=== PATIENT | male | born 1945 | race Caucasian/White ===

== ENCOUNTER 2016-12-16 14:52 | Inpatient (IN) | payer OTHER ==
--- NOTE | ~2016-12-16 | CR72 ---
[facility] A Service of [facility] & [facility] RADIOLOGY TEXT RESULTS PATIENT: MINDY PETERSON LOCATION: [place] [address] : [birth year] UNIT #: [id number] AGE: [address]: Kee Foreman MD SEX: M ORDER DR: [id number] [facility] [address] [facility]. [place], [place] [address] [id number] I MR#: [id number] Acc #: [id number] NAME: MINDY PETERSON : 1945 SEX: M STUDY DATE/TIME: 12/17/2016 4:52 UNIT: CEDOF ROOM: [facility] STUDY DESCRIPTION: CR Chest Single View Portable Attending Physician: Kee Foreman Ordering Physician: Kee Foreman Primary Care Physician: Nickolas Arango M.D. MEDICAL IMAGING REPORT This report is preliminary unless electronic signature is present EXAM Single view chest INDICATIONS Small bowel obstruction. Nausea, dizziness, shortness of air. Cardiomegaly. FINDINGS Single portable AP view of the chest compared to 06/18/2016. The heart is enlarged. There is chronic interstitial opacities in both lungs. No pleural effusion. IMPRESSION No acute findings. Cardiomegaly and chronic interstitial opacities. Dictated by... Sharad Andres M.D. THIS IS AN ELECTRONICALLY VERIFIED REPORT Sharad Andres M.D. at 12/18/2016 12:19 AM Nani TD: 12/17/2016 06:23 JOB #: [id number] MEDICAL IMAGING REPORT Page 1 of 1 COPY
--- NOTE | ~2016-12-16 | CR4 ---
[facility] A Service of [facility] & [facility] RADIOLOGY TEXT RESULTS PATIENT: MINDY PETERSON LOCATION: [facility] 55- : 45 UNIT #: [id number] AGE: [address]: Kee Foreman MD SEX: M ORDER DR: [id number] [facility] [address] [facility]. [place], [place] [address] [id number] I MR#: [id number] Acc #: [id number] NAME: MINDY PETERSON : 1945 SEX: M STUDY DATE/TIME: 12/17/2016 08:07 UNIT: [facility] ROOM: [facility] STUDY DESCRIPTION: CR Abdomen Flat Upright or Dec Attending Physician: Fatoumata Foreman M.D. Ordering Physician: Marcus Dumont III, M.D. Primary Care Physician: Nickolas Arango M.D. MEDICAL IMAGING REPORT This report is preliminary unless electronic signature is present EXAM Abdomen, supine and upright, 12/17/2016, 0807 hours. CLINICAL HISTORY 71-year-old with nausea, vomiting, and abdominal pain since 12/15/16. Follow up small bowel obstruction. COMPARISON CT abdomen 12/16/16. FINDINGS Supine and upright views of the abdomen demonstrate no definite small bowel distension or obstruction. There is gas seen throughout the colon. This represents an improvement from yesterday's CT scan. No free air. IMPRESSION No residual small bowel distension is seen on plain film. There is definite gas seen throughout the colon. Findings are improved from CT abdomen 12/16/16. There is no free air. Dictated by... Gemma Hare M.D. THIS IS AN ELECTRONICALLY VERIFIED REPORT Gemma Hare M.D. at 12/18/2016 9:30 AM PORFIRIO/veronica TD: 12/17/2016 15:34 JOB #: [id number] MEDICAL IMAGING REPORT Page 1 of 1 COPY
--- NOTE | ~2016-12-16 | CT4 ---
[facility] A Service of [facility] & [facility] RADIOLOGY TEXT RESULTS PATIENT: MINDY PETERSON LOCATION: [facility] [id number] : 45 UNIT #: [id number] AGE: [address]: Kee Foreman MD SEX: M ORDER DR: [id number] [facility] [address] [facility]. [place], [place] [address] [id number] I MR#: [id number] Acc #: [id number] NAME: MINDY PETERSON : 1945 SEX: M STUDY DATE/TIME: 12/16/2016 20:07 UNIT: CEDOF ROOM: [id number] STUDY DESCRIPTION: CT Abd and Pelv Wo Cont Attending Physician: Kee Foreman Ordering Physician: Win Zaman M.D. Primary Care Physician: Nickolas Arango M.D. MEDICAL IMAGING REPORT This report is preliminary unless electronic signature is present EXAM CT abdomen and pelvis HISTORY Nausea, abdomen pain, dizziness across middle and bilateral x5 to 6 days. Umbilical hernia repair, bilateral cataracts, colon resection, bladder repair, bilateral lower extremity stents. This CT exam was performed with one or more of the following radiation dose reduction techniques: automatic exposure control, adjustment of mA and/or kV according to patient size, and iterative reconstruction. FINDINGS CT abdomen and pelvis performed without administration of oral or intravascular contrast. Study limited in the absence of both enteric and intravascular contrast. Comparison 12/12/2013. Emphysema at lung bases. Calcified granuloma right lung base. Mild cardiac enlargement. There are coronary arterial calcifications. Calcified granulomata in the liver. No suspicious focal hepatic parenchymal abnormality. Gallbladder, spleen, pancreas, adrenal glands unremarkable. Nonobstructing intrarenal calculi bilaterally. Largest is on the left in the mid kidney measuring 3-4 mm. Some of these calcifications could be renovascular. No hydronephrosis or hydroureter. No indication of ureteral or bladder calculi. No perinephric inflammatory change. CT PELVIS: No inguinal adenopathy. The urinary bladder is unremarkable. There are prostatic calcifications. No pelvic or retroperitoneal adenopathy. Distal esophagus and stomach unremarkable. High-grade mechanical small bowel obstruction secondary to what appears to be an incarcerated loop of [id number] small bowel probably distal jejunum or proximal ileum in a left paracentral paraumbilical hernia. Small bowel loops extending to the hernia measure up to about 5.3 cm in maximum [facility]S. [facility] A Service of [facility] & [facility] RADIOLOGY TEXT RESULTS PATIENT: MINDY PETERSON LOCATION: [facility] : 45 UNIT #: [id number] AGE: [address]: Kee Foreman MD SEX: M ORDER DR: diameter and contain fluid and multiple air-fluid levels. Small bowel exiting the hernia sac is smaller in caliber but the small bowel immediately exiting the hernia sac shows some mural thickening which could be a reflection of edema secondary to vascular compromise. Remainder of the distal small bowel is decompressed. Surgical consultation strongly recommended. The dilated small bowel loop within the hernia sac measures up to about 3.2 cm in diameter and contains debris. There is some inflammatory change in the fat extending toward the hernia sac. Patient appears to be status post appendectomy. There is pancolonic diverticulosis. Air and stool seen throughout normal-caliber colon. There is evidence of prior sigmoid resection and reanastomosis. No abnormal soft tissue at the anastomotic line. No free air or intraabdominal fluid collection. Atherosclerotic arterial calcifications. [place] aortobifemoral bypass graft. [place] iliac vessels are diminutive in caliber and show extensive vascular calcification. Degenerative changes in the spine. No acute-appearing bony abnormality. IMPRESSION 1. Findings discussed with Dr. Zaman at time of this dictation. High-grade mechanical small bowel obstruction with transition zone in the distal jejunum or proximal ileum involving what is probably a short incarcerated loop of small bowel in a left paraumbilical hernia. There is high-grade resulting obstruction with small bowel loops leading to the hernia sac measuring up to about 5.3 cm in diameter. Small bowel proximal to the hernia sac contains multiple air-fluid levels and a large volume of fluid and debris. A dilated loop within the hernia sac measures 3.2 cm in diameter and contains debris. Relatively decompressed loop exiting the hernia sac shows abnormal mural thickening which may be a reflection of edema secondary to vascular compromise. Surgical consultation is recommended. There is no free air in the abdomen. There is no abnormal fluid collection. There is some inflammatory change in the mesenteric fat of the of small bowel loop extending into the left paraumbilical hernia. 2. Postoperative changes of appendectomy and sigmoid resection. There is pancolonic uncomplicated diverticulosis. 3. Gallbladder, pancreas unremarkable. 4. Small nonobstructing bilateral renal calculi. No acute renal findings. 5. Prior aortobifemoral bypass graft. 6. Extensive atherosclerotic arterial calcification. 7. Emphysema at lung bases. Dictated by... Michi Baird M.D. THIS IS AN ELECTRONICALLY VERIFIED REPORT Michi Baird M.D. at 12/17/2016 10:27 PM [facility] A Service of [facility] & [facility] RADIOLOGY TEXT RESULTS PATIENT: MINDY PETERSON LOCATION: [place] [address] : [birth year] UNIT #: [id number] AGE: [address]: Kee Foreman MD SEX: M ORDER DR: LIZZ/carmelita TD: 12/17/2016 01:16 JOB #: [id number] MEDICAL IMAGING REPORT Page 1 of 1 COPY
--- NOTE | ~2016-12-16 | EKG ---
PATIENT: MINDY PETERSON UNIT #: [id number] Ventricular Rate: 65 BPM Atrial Rate: 394 BPM QRS Duration: 92 ms Q-T Interval: 400 ms QTC Calculation(Bezet): 416 ms Calculated R Arlee: 20 degrees Calculated T Arlee: 55 degrees Diagnosis Line: Atrial fibrillation Diagnosis Line: Abnormal ECG Diagnosis Line: When compared with ECG of 04-JUN-2016 14:41, Diagnosis Line: Nonspecific T wave abnormality no longer evident Diagnosis Line: in Inferior leads Diagnosis Line: Nonspecific T wave abnormality now evident in Diagnosis Line: Lateral leads Diagnosis Line: Confirmed by GARRISON MERCADO MD ([id number]) on 12/18/2016 Diagnosis Line: 5:56:28 PM INTERPRETING MD: ROGELIO ISAAC
--- NOTE | ~2016-12-16 | HP ---
Unit #: [id number] #: [id number] Patient: MINDY PETERSON [id number] [address] [place], [place] [address] [id number] I MR#: [id number] NAME: MINDY PETERSON ROOM: 55 Age: 71 Sex: M Admission Date: 12/16/2016 : 1945 Attending Physician: Fatoumata Foreman M.D. Primary Care Physician: Nickolas Arango M.D. HISTORY AND PHYSICAL CHIEF COMPLAINT Abdominal pain, nausea, vomiting. HISTORY OF PRESENT ILLNESS This is a 71-year-old gentleman who has been having a one and a half week history of abdominal pain. The pain is worse in the central portion of his abdomen. He has been experiencing some cramping all over. He has had some worsening vomiting that is green in color. He had a bowel movement just recently and states he feels slightly better this morning. He also had an NG-tube placed with minimal return. PAST MEDICAL HISTORY Significant for coronary artery disease, hypertension, diabetes and hypothyroidism. MEDICATIONS Please see Med Rec list for list of medications. He does take Xarelto. ALLERGIES He has no known drug allergies. PAST SURGICAL HISTORY Significant for numerous abdominal surgeries including colon resection and multiple hernia repairs, his last of which was done in 2010. REVIEW OF SYSTEMS Negative for fevers or weight loss and is otherwise as above. FAMILY HISTORY Negative for any abdominal cancers. PHYSICAL EXAMINATION VITAL SIGNS: Temperature 98.1, heart rate is 82, respiratory rate is 20, blood pressure is 139/90. GENERAL: He is in no acute distress. HEENT: Pupils are equal, reactive to light and accommodation. His extraocular muscles are intact. NECK: Without masses or bruits. LUNGS: Good breath sounds bilaterally with equal air exchange. CARDIAC: Regular rate and rhythm without murmur. ABDOMEN: Soft, nondistended, nontender. He has a reducible periumbilical incisional hernia. EXTREMITIES: Without edema or cyanosis. NEUROLOGICAL: He is alert and oriented. here are no focal deficits. Unit #: [id number] #: [id number] Patient: MINDY PETERSON DIAGNOSTIC STUDIES IMAGING: CT scans a "incarcerated hernia" with a transition zone. LABORATORY: White blood count is 15,000, creatinine is 1.8. IMPRESSION This is a gentleman who has a small bowel obstruction which clinically has resolved and I believe whatever was incarcerated is now reduced. He has had a bowel movement this morning and has had minimal NG-tube output. The other issues - he is on blood thinners with his Xarelto. My plan is to discontinue his NG-tube, keep him NPO, repeat KUB and reassess. He will likely require laparoscopic, possible open, repair of this recurrent incisional hernia during this hospitalization. Dictated by Marcus Dumont III, M.D. VCL/kaylee TD: 12/18/2016 08:15 JOB #: [id number] HISTORY AND PHYSICAL Page 1 of 1 X Marcus Dumont III, MD HISTORY AND PHYSICAL
--- NOTE | ~2016-12-16 | CR63 ---
[facility] A Service of [facility] RADIOLOGY TEXT RESULTS PATIENT: MINDY PETERSON LOCATION: [place] [address] : [birth year] UNIT #: [id number] AGE: [address]: Kee Foreman MD SEX: M ORDER DR: [id number] [facility] [address] [facility]. [place], [place] [address] [id number] I MR#: [id number] Acc #: [id number] NAME: MINDY PETERSON : 1945 SEX: M STUDY DATE/TIME: 12/22/2016 7:40 UNIT: [facility] ROOM: [facility] STUDY DESCRIPTION: CR Chest 2 View Attending Physician: Kee Foreman Ordering Physician: Fatoumata Foreman M.D. Primary Care Physician: Nickolas Arango M.D. MEDICAL IMAGING REPORT This report is preliminary unless electronic signature is present EXAM PA and lateral chest INDICATIONS Follow pneumonia. COMPARISON 12/20/2016 FINDINGS Heart size stable. Stable infiltrate left base. Stable pulmonary vascular prominence. Visualized osseous structures are unremarkable. IMPRESSION No significant change in the appearance of the chest Dictated by... Jadiel Jo M.D. THIS IS AN ELECTRONICALLY VERIFIED REPORT Jadiel Jo M.D. at 12/24/2016 7:47 AM CRISTI/padmini TD: 12/22/2016 13:49 JOB #: [id number] MEDICAL IMAGING REPORT Page 1 of 1 COPY
--- NOTE | ~2016-12-16 | CR72 ---
[facility] A Service of [facility] & [facility] RADIOLOGY TEXT RESULTS PATIENT: MINDY PETERSON LOCATION: [place] [address] : [birth year] UNIT #: [id number] AGE: [address]: Kee Foreman MD SEX: M ORDER DR: [id number] [facility] [address] [facility]. [place], [place] [address] [id number] I MR#: [id number] Acc #: [id number] NAME: MINDY PETERSON : 1945 SEX: M STUDY DATE/TIME: 12/24/2016 5:03 UNIT: [facility] ROOM: [facility] STUDY DESCRIPTION: CR Chest Single View Portable Attending Physician: Fatoumata Foreman M.D. Ordering Physician: Fatoumata Foreman M.D. Primary Care Physician: Nickolas Arango M.D. MEDICAL IMAGING REPORT This report is preliminary unless electronic signature is present EXAM Portable chest INDICATION Shortness of air today. PROCEDURE Frontal view chest. COMPARISON 12/22/2016. FINDINGS Stable cardiomegaly and bibasilar opacity. No new dense consolidation or pneumothorax. IMPRESSION Stable. Dictated by... Raz Brothers M.D. THIS IS AN ELECTRONICALLY VERIFIED REPORT Raz Brothers M.D. at 12/24/2016 10:13 PM DIANNA/zulema TD: 12/24/2016 10:17 JOB #: [id number] MEDICAL IMAGING REPORT Page 1 of 1 COPY
--- NOTE | ~2016-12-16 | CR72 ---
[facility] A Service of [facility] & [facility] RADIOLOGY TEXT RESULTS PATIENT: MINDY PETERSON LOCATION: [place] [address]- : [birth year] UNIT #: [id number] AGE: [address]: Kee Foreman MD SEX: M ORDER DR: [id number] [facility] [address] [place], [place] [address] [id number] I MR#: [id number] Acc #: [id number] NAME: MINDY PETERSON : 1945 SEX: M STUDY DATE/TIME: 12/20/2016 6:10 UNIT: [facility] ROOM: [facility] STUDY DESCRIPTION: CR Chest Single View Portable Attending Physician: Fatoumata Foreman M.D. Ordering Physician: Fatoumata Foreman M.D. Primary Care Physician: Nickolas Arango M.D. MEDICAL IMAGING REPORT This report is preliminary unless electronic signature is present EXAM Portable AP view of the chest COMPARISON December 17, 2016; June 18, 2016; June 13, 2016. INDICATION 71-year-old male with dyspnea, nausea and emesis for 5 days. History of COPD. FINDINGS/IMPRESSION Exam is limited by rightward patient rotation. Lung volumes are diminished from comparison study with increasing bibasilar opacities, left greater than right, increasing interstitial opacities throughout the lungs, possibly reflecting bronchovascular crowding. There is cardiomegaly. Lung opacities could representing any combination of atelectasis, pneumonia and/or pulmonary edema. There is no evidence of pneumothorax or significant pleural effusion. Calcified granulomas are suspected in the mediastinum. Dictated by... Ttii Garcia M.D. THIS IS AN ELECTRONICALLY VERIFIED REPORT Titi Garcia M.D. at 12/27/2016 1:50 PM Kari TD: 12/20/2016 10:40 JOB #: [id number] MEDICAL IMAGING REPORT Page 1 of 1 COPY
--- NOTE | ~2016-12-16 | CR2 ---
[facility] A Service of [facility] RADIOLOGY TEXT RESULTS PATIENT: MINDY PETERSON LOCATION: [place] [address] : [birth year] UNIT #: [id number] AGE: [address]: Kee Foreman MD SEX: M ORDER DR: [id number] [facility] [address] [facility]. [place], [place] [address] [id number] I MR#: [id number] Acc #: [id number] NAME: MINDY PETERSON : 1945 SEX: M STUDY DATE/TIME: 12/18/2016 07:49 UNIT: [facility] ROOM: [facility] STUDY DESCRIPTION: CR Abdomen Acute Series Attending Physician: Fatoumata Foreman M.D. Ordering Physician: Fatoumata Foreman M.D. Primary Care Physician: Nickolas Arango M.D. MEDICAL IMAGING REPORT This report is preliminary unless electronic signature is present EXAM Abdomen series with chest 12/18/2016 0749 hours CLINICAL HISTORY 71-year-old man with abdominal pain, small bowel obstruction, nausea, vomiting and diarrhea and shortness of air since 12/15/2016. COMPARISON 12/17/2016 at 0807 hours. FINDINGS Upright chest film demonstrates normal heart size. The lungs are clear of acute densities. There is no pleural effusion or pneumothorax. There is no free air in the abdomen. Supine and upright views of the abdomen demonstrate no evidence of bowel distension or obstruction. No suspicious calcifications. IMPRESSION 1. No acute findings in the chest. 2. No evidence of residual bowel distension or obstruction. No suspicious calcifications. No free air. Dictated by... Gemma Hare M.D. THIS IS AN ELECTRONICALLY VERIFIED REPORT Gemma Hare M.D. at 12/18/2016 2:35 PM PORFIRIO/zulema TD: 12/18/2016 10:24 JOB #: [id number] [facility] A Service [facility] RADIOLOGY TEXT RESULTS PATIENT: MINDY PETERSON LOCATION: [facility] [phone] : [birth year] UNIT #: [id number] AGE: [address]: Kee Foreman MD SEX: M ORDER DR: MEDICAL IMAGING REPORT Page 1 of 1 COPY
--- NOTE | ~2016-12-16 | CO ---
Unit #: [id number] #: [id number] Patient: MINDY PETERSON [id number] [place] [address] [facility]. [place], [place] [address] [id number] MR#: [id number] NAME: MINDY PTEERSON ROOM: [facility] Age: 71 Sex: M Admission Date: 12/16/2016 : 1945 Attending Physician: Fatoumata Foreman M.D. Primary Care Physician: Nickolas Arango M.D. CONSULTATION REPORT HISTORY OF PRESENT ILLNESS This is a gentleman with a history of COPD and recurrent kidney infections who we have seen multiple times in the hospital. Last night he presented with generalized weakness, worsening shortness of breath, and pain around the abdominal hernia site. The severity was worsening gradually. Patient also had some nausea without significant vomiting. Had (1) had a bowel movement, but the pain was getting worse, and it was beginning to be associated with lightheadedness. Therefore, patient came to the emergency room. A CT scan of the abdomen found an incarcerated ventral hernia. However, as the patient is on Xarelto daily, it is being held for 24-48 hours before any surgery is performed on the patient. We are going to get a KUB in the morning and then clear patient for surgery tomorrow. PAST MEDICAL HISTORY 1. Cardiac catheterization in 2007 which showed kind of scattered coronary artery disease. 2. A 2D echocardiogram showed an ejection fraction of 55% to 60% and trace tricuspid regurgitation. 3. Ascending aortic dilatation that is 4.2 cm per CAT scan in October 2005. 4. Hypertension. 5. Hyperlipidemia. 6. Atrial fibrillation. 7. History of direct cardioversion. 8. Diabetes mellitus type 2. 9. Peripheral vascular disease. 10. Chronic obstructive pulmonary disease. 11. History of dementia. 12. History of alcohol abuse. 13. History of being a former smoker. 14. Hypothyroidism. PAST SURGICAL HISTORY 1. Colovesicular fistula surgical repair. 2. Appendectomy. 3. Cataract extraction. 4. Carpal tunnel release. 5. Left arthroscopic surgery. SOCIAL HISTORY Patient is retired and . He quit in July. Patient was one to one and a half packs per day for more than 60 years. Patient has a history of (2) alcohol consumption, none currently. No history of polysubstance use and no occupational exposure. Unit #: [id number] #: [id number] Patient: MINDY PETERSON FAMILY HISTORY Heart disease and cancer. ALLERGIES No known medical allergies. HOME MEDICATIONS 1. Symbicort 80/4.5 at 2 puffs twice daily. 2. Xarelto 20 mg daily. 3. Pravastatin 40 mg daily. 4. ProAir 90 mcg every 4 hours. 5. Memantine/donepezil 28 mg/10 mg capsule 1 daily. 6. Synthroid 0.125 mg q.24 hours. 7. Glucotrol 5 mg daily. 8. Aspirin 81 mg daily. 9. Diltiazem 360 mg daily. 10. Allergy 10 mg daily. 11. Celexa 20 mg daily. 12. Metformin 500 mg at bedtime. 13. Nicotine 21 mg 1 patch topical daily. PHYSICAL EXAMINATION VITAL SIGNS: T-current 97.7, pulse 68, respiratory rate 18, blood pressure 129/73, and saturating 100% on 2 liters nasal cannula. Ins and outs not recorded. DIAGNOSTIC STUDIES LABORATORY: White count 11.8, hemoglobin 11.2, and platelets of 246,000. RDW is elevated at 18.4. Comprehensive metabolic profile: BUN and creatinine 25 and 1.2 and glucose 176. LFTs are within normal limits. Lactic acid is 1.1. Urinalysis shows elevated WBCs. Amylase and lipase are 15 and 20 so within normal limits. ASSESSMENT AND PLAN Incarcerated ventral hernia. We are going to do bowel rest. We are going to do nasogastric suction. Surgery is going to follow, and we are going to keep him on IV fluid supplemental while we are waiting for bowel function to return. Dictated by... Nicholas Obrien TD: 12/17/2016 18:46 JOB #: [id number] CONSULTATION REPORT Page 1 of 1 X Kee Foreman MD CONSULTATION REPORT
--- NOTE | ~2016-12-16 | DS ---
Unit #: [id number] #: [id number] Patient: MINDY PETERSON [id number] [address] [place], [place] [address] [id number] I MR#: [id number] NAME: MINDY PETERSON ROOM: [facility] Age: 71 Sex: M Admission Date: 12/16/2016 : 1945 Discharge Date: 12/25/2016 Attending Physician: Fatoumata Foreman M.D. Primary Care Physician: Nickolas Arango M.D. DISCHARGE SUMMARY REASON FOR ADMISSION 1. Ileus, status post abdominal surgery. 2. Altered mental status. 3. Cellulitis. 4. Probable pneumonia. 5. Urinary retention. CONSULTANTS Dr. Dumont for general surgery. Dr. Nunez for urinary tract infection. PROCEDURES PERFORMED Recurrent incarcerated incisional hernia, status post herniorrhaphy with mesh repair. HOSPITAL COURSE The patient is a pleasant gentleman with a history of chronic obstructive pulmonary disease, recurrent kidney infections, seen multiple times in the hospital. He has generalized weakness, worsening shortness of breath, pain around abdominal hernia site. The patient is having worsening severity nausea without significant vomiting. He had a bowel movement. Pain was getting worse. The pain was beginning to be associated with lightheadedness. The patient came to the emergency room. CT scan of the abdomen found severe incarcerated hernia. However, the patient was on Xarelto so he was put on bowel rest for approximately 24-48 hours before surgery was performed on the patient. The patient was then cleared for surgery by Dr. Arango. The patient had surgery. The patient tolerated it well. There were no acute complications. The patient is being followed by surgery. Urology removed the Whitehead catheter. The patient was able to void. Due to the patient's improvement, he was able to be sent home on Keflex for 7 days. The patient was slightly confused at some points. The was present. The patient also benefitted from a sitter. DISCHARGE MEDICATIONS 1. Albuterol sulfate. 2. RespiClick 1 puff p.r.n. wheezing. 3. Symbicort 2 puffs b.i.d. 80/4.5. 4. Combivent nebs p.r.n. 5. Tamsulosin 0.4 mg daily. 6. Xarelto 10 mg daily. 7. Celexa 20 mg daily. 8. Metformin 500 mg p.o. at bedtime. 9. Zyrtec 10 mg daily. 10. Nicotine patch topical daily. Unit #: [id number] #: [id number] Patient: MINDY PETERSON 11. Diltiazem 360 mg extended release p.o. daily. 12. Memantine/donepezil capsule 10/28 mg daily. 13. Pravastatin 40 mg daily. 14. Aspirin 81 mg daily. 15. Hydrocodone/acetaminophen 7.5/325 mg 1-2 tablets q.4 h. p.r.n. moderate pain. 16. Glipizide 5 mg daily. 17. Levothyroxine 0.125 mg p.o. daily. 18. Keflex 500 mg p.o. t.i.d. times 7 days. FOLLOWUP 1. The patient is to follow up with Dr. Dumont in 10 days. 2. Follow up with our office in approximately two weeks. DIET Advance slowly as tolerated. ACTIVITY Ad rishabh. Dictated by... Nicholas Obrien/joaquin TD: 12/26/2016 09:35 JOB #: [id number] DISCHARGE SUMMARY Page 1 of 1 X Kee Froeman MD X DISCHARGE SUMMARY
--- NOTE | ~2016-12-16 | OR ---
Unit #: [id number] #: [id number] Patient: MINDY PETERSON [id number] [place], [place] [address] [id number] MR#: [id number] NAME: MINDY PETERSON ROOM: [facility] Date of Procedure: 12/19/2016 Admission Date: 12/16/2016 Surgeon: Marcus Dumont III, M.D. : 1945 Attending Physician: Fatoumata Foreman M.D. Primary Care Physician: Nickolas Arango M.D. OPERATIVE REPORT REVISED REPORT PREOPERATIVE DIAGNOSIS Recurrent incarcerated incisional hernia. POSTOPERATIVE DIAGNOSIS Recurrent incarcerated incisional hernia. PROCEDURES PERFORMED Laparoscopic repair of recurrent incarcerated incisional hernia with 8 x 10 inch Ventralight mesh and laparoscopic lysis of adhesions greater than 45 minutes. ANESTHESIA General endotracheal tube anesthesia. SPECIMENS None. COMPLICATIONS None apparent. ESTIMATED BLOOD LOSS Minimal. INDICATIONS FOR PROCEDURE This is a 71-year-old gentleman, who has had multiple abdominal surgeries and ventral hernia repairs in the past. He presented with a bowel obstruction and incarcerated incisional hernia. I was able to partially reduce it to where his bowel obstruction resolved. He is here today for laparoscopic repair. DESCRIPTION OF PROCEDURE After consent was obtained, the patient was brought to the operating room and placed in the supine position. General anesthetic was administered and his abdomen was prepped and draped in standard surgical fashion. I made a 5-mm incision in the right upper quadrant, and using Optiview to enter into the peritoneal cavity. Likely, I was able to get in without any difficulty. Unfortunately, he had a wall of adhesions along the midline. I placed a 5-mm port in the left lower quadrant. I took a little bit of care to place, because of some adhesions; however, it was placed in an area without adhesions. I then took a while to clear off some of the adhesions along the midline. After a very tedious dissection Unit #: [id number] #: [id number] Patient: MINDY PETERSON that included both blunt and very meticulous sharp dissection with Endo Rosina. I was able to identify the midline including approximately 4-5 incarcerated incisional hernias above where his prior mesh repairs were performed. He had two areas specifically that had loops of bowel going up within the hernia sac. I was able to clear out enough area to where I could see the other side of the abdomen and I placed an 11 mm port in the left upper quadrant and a 5-mm port in the left lower quadrant. I kept one from [id number] working to complete the dissection to free up the abdominal wall of all the adhesions, and cleaned out the hernias. Again, after about 45 minutes, I was able to perform meticulous dissection to where these hernias were fully reduced without any injury to the small intestine. Once the defects were identified, I estimated that an 8 x 10 inch piece of Ventralight mesh would widely cover these defects with approximately 2 inch margin. I placed 4 corner sutures along the mesh. It was moistened and rolled up and passed within the 11 mm port site. It was then unfurled and I used an Endo passer to collect the 4 tails of the mesh and I oriented the mesh, so that the rough side was towards the fascia and the smooth side was towards the viscera. I used a capture Tacker to fixate the mesh against the other piece of mesh that was present already and I used SorbaFix Tacker for the muscogee tissue. I had a little bit of excess mesh along the inferior margin that I trimmed approximately 2/3 of an inch. This was removed through one of the port sites. I had excellent hemostasis and all needle, sponge, and instrument counts were correct x2. Again, there was both an outer and inner row of tacks placed to fixate the mesh. I removed all the trocars and released the pneumoperitoneum. All the incisions were injected with 0.25% plain Marcaine. I reapproximated the skin edges with interrupted 4-0 Vicryl subcuticular suture. Steri-Strips were then applied. The patient tolerated the procedure without any problems and returned to the recovery room in stable condition. Dictated by... Marcus Dumont III, M.D. VCL/isidoro TD: 12/20/2016 17:06 JOB #: [id number] OPERATIVE REPORT Page 1 of 1 X Marcus Dumont III X PROCEDURE OPERATIVE NOTE
--- NOTE | ~2016-12-16 | CO ---
Unit #: [id number] #: [id number] Patient: MINDY PETERSON [id number] [address] [place], [place] [address] [id number] I MR#: [id number] NAME: MINDY PETERSON ROOM: [facility] Age: 71 Sex: M Admission Date: 12/16/2016 : 1945 Attending Physician: Fatoumata Foreman M.D. Primary Care Physician: Nickolas Arango M.D. Requesting Physician: Nickolas Arango M.D. CONSULTATION REPORT CHIEF COMPLAINT Urinary retention, gross hematuria. HISTORY OF PRESENT ILLNESS The patient is a 71-year-old male who presented with abdominal pain. He was found to have a recurrent ventral hernia. The patient is a poor historian, but he had some element of urinary retention, which he stated had lasted for "not too long." He had a catheter, which apparently was traumatically removed, and had some hematuria after that. A Whitehead catheter was replaced. His urine is now clear. He has had some urinary issues in the past, and many years ago he was on Flomax but has not recently been on Flomax. He has had occasional frequency and urgency. PAST MEDICAL HISTORY 1. COPD. 2. Pulmonary embolus. 3. Nephrolithiasis. 4. Diabetes. 5. Hyperlipidemia. 6. Hypertension. PAST SURGICAL HISTORY 1. Colovesical fistula repair. 2. Multiple abdominal surgeries and bowel resections. 3. Umbilical hernia repair. 4. Cataract repair. 5. Carpal tunnel repair. 6. Cardiac catheterization. SOCIAL HISTORY Previous smoker. Positive for alcohol. No drug use. FAMILY HISTORY Positive for diabetes, hypertension and lung cancer. REVIEW OF SYSTEMS A 12-point review of systems was performed and was positive for urinary retention, for hematuria after Whitehead being removed and for abdominal pain, as well as hemoptysis. The review of systems was otherwise negative. PHYSICAL EXAMINATION VITALS: Temperature 98.4, blood pressure 160/78, pulse 96. HEENT: Normocephalic, atraumatic. Extraocular movements are intact. NECK: His neck is supple. No lymphadenopathy. Unit #: [id number] #: [id number] Patient: MINDY PETERSON LUNGS: The patient has symmetric chest rise. He is breathing comfortably. CARDIOVASCULAR: Regular rate and rhythm. ABDOMEN: Soft, nontender, nondistended. There are multiple healed surgical incisions. EXAM: Whitehead catheter is in place. The urine is clear. There is blood at the meatus, around the catheter. Digital rectal exam - His prostate is 1+ enlarged. There are no nodules. EXTREMITIES: No clubbing, cyanosis or edema. Radial pulses are 2+ bilaterally. NEUROLOGIC: He is alert and oriented x4. He is moving all extremities well. DIAGNOSTIC STUDIES IMAGING: CT scan of the abdomen and pelvis without contrast was reviewed, which reveals no hydronephrosis and small bilateral nonobstructing stones, as well as a ventral hernia. LABS: Significant for a creatinine of 1.1. Urinalysis prior to the catheter being pulled out was nitrite negative, leukocyte esterase negative, negative for blood. ASSESSMENT AND PLAN Gross hematuria after traumatic Whitehead removal with urinary retention. We will leave his catheter in place, as he is going to surgery for ventral hernia repair today. We will start him on Flomax. We will plan to do a voiding trial prior to discharge. We appreciate the opportunity to participate in the care of this patient. Dictated by... Win Nunez M.D. MAGI/joceline TD: 12/19/2016 09:14 JOB #: [id number] CONSULTATION REPORT Page 1 of 1 X Win Nunez MD CONSULTATION REPORT
[~2016-12-16 14:52] MED LIST: ACETAMINOPHEN PO; ALBUTEROL17 GM INH; ALL DAY ALLERGY10 MG PO; AMIODARONE PO; AMPICILLIN PO; ASPIRIN81 M1 PO; ASPIRIN81 M2 PO; ASPIRINEC PO; BLOOD PRESSURE; CARDIZEM CD PO; COMBIVENT INH14.7 GM INH; COUMADIN PO; DILTIAZEM ER360 MG PO; GLUCOTROL PO; GLUCOVANCE 2.5/1 TA1 PO; GLYNASE PO; KEFLEX PO; LEVAQUIN PO; LISINOPRIL PO; MACROBID 100 M100 MG PO; NICOTINE PATCH1 EACH TD; OMNICEF300 M1 PO; PRAVACHOL PO; PRAVASTATIN SOD40 MG PO; PREDNISONE PO; PROAIR RESPICL90 MCG INH; SPIRIVA18 MCG PO; SYMBICORT INH; SYMBICORT80 INH; SYNTHROID PO; SYNTHROID125 PO; TYLOX1 CAP 5/50 PO; XARELTO20 MG PO; ZOCOR PO; ZYRTEC10 M2 PO; [UNRECOGNIZED DRUG - OTHER]; [UNRECOGNIZED DRUG - OTHER]
[2016-12-16 18:44] LABS: BASOPHIL# 0.1 X10e3 (0-0.3); BASOPHIL% 0.6 % (0-2.5); EOSINOPHIL% 0.2 % (0.0-7.0); HEMATOCRIT 41.4 % (38.0-50.0); HEMOGLOBIN 12.5 gm/dL (13.0-16.0); LYMPHOCYTE# 1.7 X10e3 (1.0-3.5); LYMPHOCYTE% 10.9 % (17.0-45.0); MEAN CELL VOLUME 68.4 FL (83-96); MEAN CORPUSCULAR HEMOGLOBIN 20.6 PG (28-34); MEAN CORPUSCULAR HGB CONC 30.2 g/dL (30-36); MEAN PLATELET VOLUME 8.4 FL (6.5-11.5); MONOCYTE% 12.5 % (3.0-12.0); NEUTROPHIL# 11.9 X10e3 (1.5-7.1); NEUTROPHIL% 75.8 % (40-75); PLATELET COUNT 276 X10e3 (140-420); RED BLOOD COUNT 6.05 X10e (3.90-5.60); RED CELL DISTRIBUTION WIDTH 18.3 % (11.0-15.5); WHITE BLOOD COUNT 15.7 X10e3 (4.0-10.5)
[2016-12-16 18:45] LABS: DIFF IND YES
[2016-12-16 19:11] LABS: ALBUMIN SERUM 4.3 g/dL (3.5-5.0); BILIRUBIN, DIRECT 0.2 mg/dL (0.0-0.2); BILIRUBIN,INDIRECT 1.4 mg/dL (0.0-0.9); BILIRUBIN,TOTAL 1.6 mg/dL (0.2-2.0); BUN/CREATININE RATIO 18.88; CALCIUM SERUM 9.4 mg/dL (8.4-10.2); CREATININE SERUM 1.8 mg/dL (0.6-1.4); POTASSIUM 4.7 mmol/L (3.5-5.1)
[2016-12-16 19:28] LABS: ALCOHOL BLOOD <5 mg/dL ([, 0]); CK TOTAL 119 IU/L (36-174)
[2016-12-16 19:33] LABS: ANISOCYTOSIS MOD; MICROCYTOSIS SL; POIKILOCYTOSIS SL
[2016-12-16 19:46] LABS: %MB 4.3 % (0.0-4.0); MB 5.1 ng/ml
[2016-12-16 19:59] LABS: PLATELET ESTIMATE NORMAL (NORMAL)
[2016-12-16 20:38] LABS: URINE SOURCE CLEAN CATCH
[2016-12-16 20:45] LABS: URINE APPEARANCE CLOUDY; URINE BLOOD NEG (NEG); URINE COLOR DK YELLOW; URINE GLUCOSE 100 MG/DL (NEG); URINE KETONE TRACE (NEG); URINE LEUKOCYTE ESTERASE NEG (NEG); URINE NITRATE NEG (NEG); URINE SPECIFIC GRAVITY 1.026 (1.003-1.035)
[2016-12-16 20:48] LABS: URINE BACTERIA AUWI NEG (NEGATIVE); URINE PROTEIN 1+ (NEG); URINE SQUAMOUS EPITHELIAL CELL OCC /[HPF]
[2016-12-16 20:49] LABS: URINE BILIRUBIN NEG (NEG)
[2016-12-16 20:50] LABS: CULTURE INDICATED? NO
[2016-12-16] MEDS ORDERED: CELEXA20 MG PO (22:03)
[2016-12-16] MEDS ORDERED: NAMZARIC 28 MG1 EACH PO (22:03)
[2016-12-16] MEDS ORDERED: METFORMIN HCL500 M3 PO (22:04)
[2016-12-16] MEDS ORDERED: NICOTINE TRANSD14 MG TOP (22:07)
[2016-12-16 22:51] LABS: INR 1.3; PROTHROMBIN TIME (PATIENT) 13.5 SECONDS (9.6-11.5)
[2016-12-16 22:57] LABS: MAGNESIUM 1.9 mg/dL (1.6-3.0); PHOSPHOROUS 4.7 mg/dL (2.5-4.6)
[2016-12-17 10:28] LABS: BASOPHIL# 0.1 X10e3 (0-0.3); BASOPHIL% 0.8 % (0-2.5); EOSINOPHIL# 0.1 X10e3 (0-0.7); EOSINOPHIL% 0.5 % (0.0-7.0); LYMPHOCYTE# 1.8 X10e3 (1.0-3.5); LYMPHOCYTE% 15.1 % (17.0-45.0); MEAN CELL VOLUME 68.5 FL (83-96); MEAN CORPUSCULAR HEMOGLOBIN 20.5 PG (28-34); MEAN CORPUSCULAR HGB CONC 29.9 g/dL (30-36); MEAN PLATELET VOLUME 8.8 FL (6.5-11.5); MONOCYTE# 1.2 X10e3 (0-1.0); MONOCYTE% 10.4 % (3.0-12.0); NEUTROPHIL# 8.7 X10e3 (1.5-7.1); NEUTROPHIL% 73.2 % (40-75); PLATELET COUNT 246 X10e3 (140-420); RED BLOOD COUNT 5.48 X10e (3.90-5.60); RED CELL DISTRIBUTION WIDTH 18.4 % (11.0-15.5); WHITE BLOOD COUNT 11.8 X10e3 (4.0-10.5)
[2016-12-17 10:31] LABS: DIFF IND NO; HEMATOCRIT 37.5 % (38.0-50.0); HEMOGLOBIN 11.2 gm/dL (13.0-16.0)
[2016-12-17 10:54] LABS: ALBUMIN SERUM 3.5 g/dL (3.5-5.0); BUN/CREATININE RATIO 20.83; CALCIUM SERUM 8.6 mg/dL (8.4-10.2); CREATININE SERUM 1.2 mg/dL (0.6-1.4); GLOM FILT RATE Estimated 60.5 mL/min (>60); POTASSIUM 4.2 mmol/L (3.5-5.1); PROTEIN TOTAL SERUM 6.2 g/dL (6.0-8.3)
[2016-12-18 06:58] LABS: HEMATOCRIT 37.7 % (38.0-50.0); HEMOGLOBIN 11.4 gm/dL (13.0-16.0); MEAN CELL VOLUME 69.1 FL (83-96); MEAN CORPUSCULAR HEMOGLOBIN 20.8 PG (28-34); MEAN CORPUSCULAR HGB CONC 30.1 g/dL (30-36); MEAN PLATELET VOLUME 8.7 FL (6.5-11.5); RED BLOOD COUNT 5.45 X10e (3.90-5.60); RED CELL DISTRIBUTION WIDTH 18.8 % (11.0-15.5); WHITE BLOOD COUNT 11.4 X10e3 (4.0-10.5)
[2016-12-18 08:42] LABS: ALBUMIN SERUM 3.6 g/dL (3.5-5.0); BILIRUBIN,TOTAL 0.5 mg/dL (0.2-2.0); BUN/CREATININE RATIO 13.63; CREATININE SERUM 1.1 mg/dL (0.6-1.4); GLOM FILT RATE Estimated 67.2 mL/min (>60); MAGNESIUM 1.8 mg/dL (1.6-3.0); PHOSPHOROUS 2.9 mg/dL (2.5-4.6); POTASSIUM 4.4 mmol/L (3.5-5.1); PROTEIN TOTAL SERUM 6.5 g/dL (6.0-8.3)
[2016-12-19 07:41] LABS: BASOPHIL# 0.1 X10e3 (0-0.3); BASOPHIL% 0.6 % (0-2.5); EOSINOPHIL# 0.1 X10e3 (0-0.7); EOSINOPHIL% 0.7 % (0.0-7.0); HEMATOCRIT 37.6 % (38.0-50.0); HEMOGLOBIN 11.3 gm/dL (13.0-16.0); LYMPHOCYTE# 1.8 X10e3 (1.0-3.5); LYMPHOCYTE% 15.7 % (17.0-45.0); MEAN CELL VOLUME 68.8 FL (83-96); MEAN CORPUSCULAR HEMOGLOBIN 20.7 PG (28-34); MEAN PLATELET VOLUME 8.5 FL (6.5-11.5); MONOCYTE# 1.2 X10e3 (0-1.0); MONOCYTE% 10.2 % (3.0-12.0); NEUTROPHIL# 8.3 X10e3 (1.5-7.1); NEUTROPHIL% 72.8 % (40-75); PLATELET COUNT 234 X10e3 (140-420); RED BLOOD COUNT 5.47 X10e (3.90-5.60); RED CELL DISTRIBUTION WIDTH 18.5 % (11.0-15.5); WHITE BLOOD COUNT 11.4 X10e3 (4.0-10.5)
[2016-12-19 07:44] LABS: DIFF IND NO
[2016-12-19 08:00] LABS: BUN/CREATININE RATIO 8.75; CALCIUM SERUM 8.9 mg/dL (8.4-10.2); CREATININE SERUM 0.8 mg/dL (0.6-1.4); GLOM FILT RATE Estimated 89.9 mL/min (>60); POTASSIUM 3.8 mmol/L (3.5-5.1)
[2016-12-20 06:36] LABS: BASOPHIL# 0.1 X10e3 (0-0.3); BASOPHIL% 0.6 % (0-2.5); HEMATOCRIT 36.5 % (38.0-50.0); HEMOGLOBIN 10.5 gm/dL (13.0-16.0); LYMPHOCYTE# 1.2 X10e3 (1.0-3.5); LYMPHOCYTE% 4.6 % (17.0-45.0); MEAN CORPUSCULAR HEMOGLOBIN 20.2 PG (28-34); MEAN CORPUSCULAR HGB CONC 28.9 g/dL (30-36); MEAN PLATELET VOLUME 8.2 FL (6.5-11.5); MONOCYTE# 2.2 X10e3 (0-1.0); MONOCYTE% 8.2 % (3.0-12.0); NEUTROPHIL# 22.9 X10e3 (1.5-7.1); NEUTROPHIL% 86.6 % (40-75); PLATELET COUNT 215 X10e3 (140-420); RED BLOOD COUNT 5.21 X10e (3.90-5.60); RED CELL DISTRIBUTION WIDTH 18.3 % (11.0-15.5)
[2016-12-20 06:37] LABS: DIFF IND YES; WHITE BLOOD COUNT 26.5 X10e3 (4.0-10.5)
[2016-12-20 07:00] LABS: BUN/CREATININE RATIO 8.88; CALCIUM SERUM 8.3 mg/dL (8.4-10.2); CREATININE SERUM 0.9 mg/dL (0.6-1.4); GLOM FILT RATE Estimated 85.6 mL/min (>60); POTASSIUM 4.3 mmol/L (3.5-5.1)
[2016-12-20 07:15] LABS: ELLIPTOCYTES PRESENT; HOWELL-JOLLY BODIES PRESENT
[2016-12-20 07:16] LABS: OVALOCYTES PRESENT
[2016-12-20 07:17] LABS: PLATELET ESTIMATE NORMAL (NORMAL)
[2016-12-21 05:30] LABS: HEMOGLOBIN 10.1 gm/dL (13.0-16.0); MEAN CELL VOLUME 69.2 FL (83-96); MEAN CORPUSCULAR HEMOGLOBIN 20.5 PG (28-34); MEAN CORPUSCULAR HGB CONC 29.6 g/dL (30-36); MEAN PLATELET VOLUME 8.9 FL (6.5-11.5); RED BLOOD COUNT 4.91 X10e (3.90-5.60); RED CELL DISTRIBUTION WIDTH 18.3 % (11.0-15.5); WHITE BLOOD COUNT 20.9 X10e3 (4.0-10.5)
[2016-12-21 06:44] LABS: BUN/CREATININE RATIO 11.42; CALCIUM SERUM 8.5 mg/dL (8.4-10.2); CREATININE SERUM 0.7 mg/dL (0.6-1.4); POTASSIUM 3.8 mmol/L (3.5-5.1)
[2016-12-22 06:05] LABS: HEMATOCRIT 30.5 % (38.0-50.0); HEMOGLOBIN 9.3 gm/dL (13.0-16.0); MEAN CELL VOLUME 68.2 FL (83-96); MEAN CORPUSCULAR HEMOGLOBIN 20.9 PG (28-34); MEAN CORPUSCULAR HGB CONC 30.6 g/dL (30-36); MEAN PLATELET VOLUME 8.3 FL (6.5-11.5); RED BLOOD COUNT 4.48 X10e (3.90-5.60); RED CELL DISTRIBUTION WIDTH 18.2 % (11.0-15.5); WHITE BLOOD COUNT 12.6 X10e3 (4.0-10.5)
[2016-12-22 06:48] LABS: BUN/CREATININE RATIO 8.75; CALCIUM SERUM 8.5 mg/dL (8.4-10.2); CREATININE SERUM 0.8 mg/dL (0.6-1.4); GLOM FILT RATE Estimated 89.9 mL/min (>60); POTASSIUM 3.8 mmol/L (3.5-5.1)
[2016-12-23 06:50] LABS: HEMATOCRIT 31.8 % (38.0-50.0); HEMOGLOBIN 9.8 gm/dL (13.0-16.0); MEAN CELL VOLUME 68.3 FL (83-96); MEAN CORPUSCULAR HEMOGLOBIN 21.1 PG (28-34); MEAN CORPUSCULAR HGB CONC 30.9 g/dL (30-36); MEAN PLATELET VOLUME 8.3 FL (6.5-11.5); RED BLOOD COUNT 4.65 X10e (3.90-5.60); RED CELL DISTRIBUTION WIDTH 18.7 % (11.0-15.5); WHITE BLOOD COUNT 9.2 X10e3 (4.0-10.5)
[2016-12-23 07:51] LABS: ALBUMIN SERUM 3.2 g/dL (3.5-5.0); BILIRUBIN,TOTAL 1.1 mg/dL (0.2-2.0); BUN/CREATININE RATIO 11.42; CALCIUM SERUM 8.9 mg/dL (8.4-10.2); CREATININE SERUM 0.7 mg/dL (0.6-1.4); MAGNESIUM 1.7 mg/dL (1.6-3.0); PHOSPHOROUS 3.3 mg/dL (2.5-4.6); POTASSIUM 3.8 mmol/L (3.5-5.1); PROTEIN TOTAL SERUM 6.7 g/dL (6.0-8.3)
[2016-12-25] MEDS ORDERED: FLOMAX0.4 M1 PO (03:43)
[2016-12-25] MEDS ORDERED: COMBIVENT U/D3 M2 INH (03:46)
[2016-12-25] MEDS ORDERED: LORCET PLUS 7.1 EACH PO (03:54)
[2016-12-25] MEDS ORDERED: KEFLEX500 M1 PO (03:56)
[2017-02-19] MEDS ORDERED: OXYGEN (16:20)
[2017-02-19] MEDS ORDERED: ALBUTEROL17 GM INH (16:21)
[2017-02-19] MEDS ORDERED: SPIRIVA18 MCG INH (16:21)
== END 2016-12-25 07:40 | disposition home or self-care (01) | DRG 335 ==
LOC: CED 14:52 → C5B 21:47 → CEDOF 21:47 → C5B 12-17 08:35
PROVIDERS: Emergency Medicine; Internal Medicine Pulmonary Disease; Surgery
PROC: 0DNW4ZZ Release Peritoneum, Percutaneous Endoscopic Approach (ICD-10-PCS; 2016-12-19)
PROC: 0WUF4JZ Supplement Abdominal Wall with Synthetic Substitute, Percutaneous Endoscopic Approach (ICD-10-PCS; principal; 2016-12-19 10:00)
DX: K43.0 Incisional hernia with obstruction, without gangrene (principal); J18.9 Pneumonia, unspecified organism; J44.9 Chronic obstructive pulmonary disease, unspecified; I48.91 Unspecified atrial fibrillation; E11.9 Type 2 diabetes mellitus without complications; L03.311 Cellulitis of abdominal wall; K91.3 Postprocedural intestinal obstruction; J98.11 Atelectasis; T81.4XXA Infection following a procedure, initial encounter; I25.10 Atherosclerotic heart disease of native coronary artery without angina pectoris; I10 Essential (primary) hypertension; Y83.9 Surgical procedure, unspecified as the cause of abnormal reaction of the patient, or of later complication, without mention of misadventure at the time of the procedure; I77.819 Aortic ectasia, unspecified site; F03.90 Unspecified dementia, unspecified severity, without behavioral disturbance, psychotic disturbance, mood disturbance, and anxiety; Z98.49 Cataract extraction status, unspecified eye; F17.210 Nicotine dependence, cigarettes, uncomplicated
CPT/HCPCS: 36415; 71010; 71020; 74020; 74022; 74176; 80048; 80053; 80076; 81003; 82150; 82308; 82550; 82553; 82728; 82947; 83540; 83550; 83605; 83690; 83735; 84100; 84484; 85025; 85027; 85610; 87070; 87205; 93005; 94640; 94760; 96374; 97116; 97162; 99285; C1781; G0238; G0480; J0692; J1630; J1815; J2270; J2310; J2405; J2543; J3010; J3490

== ENCOUNTER → 2017-02-06 | Outpatient (CLI) | payer OTHER ==
[~2017-02-06] MED LIST changes: +CELEXA20 MG PO; +COMBIVENT U/D3 M2 INH; +FLOMAX0.4 M1 PO; +KEFLEX500 M1 PO; +LORCET PLUS 7.1 EACH PO; +METFORMIN HCL500 M3 PO; +NAMZARIC 28 MG1 EACH PO; +NICOTINE TRANSD14 MG TOP; +OXYGEN; +SPIRIVA18 MCG INH
--- NOTE | ~2017-02-06 | CR63 ---
[facility] A Service of [facility] RADIOLOGY TEXT RESULTS PATIENT: MINDY PETERSON LOCATION: [facility] : 45 UNIT #: [id number] AGE: [address]: Olimpia Leger SEX: M ORDER DR: [id number] [facility] [address]. [place], [place] [address] [id number] O MR#: [id number] Acc #: [id number] NAME: MINDY PETERSON : 1945 SEX: M STUDY DATE/TIME: 02/06/2017 9:41 UNIT: [facility] ROOM: STUDY DESCRIPTION: CR Chest 2 View Attending Physician: Olimpia Leger A.P.R.N. Referring Physician: Olimpia Leger A.P.R.N. Ordering Physician: Olimpia Leger A.P.R.N. Primary Care Physician: Nickolas Arango M.D. MEDICAL IMAGING REPORT This report is preliminary unless electronic signature is present EXAM Chest, 02/06/2017, [facility]. HISTORY 71-year-old male with a history of pneumonia followup, chronic obstructive pulmonary disease, fatigue, sleep apnea. COMPARISON Chest, 12/24/2016. FINDINGS Two-view chest demonstrates normal stable cardiac size and configuration. Calcific plaquing is present in the thoracic aorta. Interstitial markings are prominent bilaterally. Previously noted bibasilar infiltrates have cleared. IMPRESSION 1. Interval clearing of bibasilar pneumonia. 2. Atherosclerotic cardiovascular disease. 3. Generalized interstitial prominence consistent with fibrosis. Dictated by... Isma Lord M.D. THIS IS AN ELECTRONICALLY VERIFIED REPORT Isma Lord M.D. at 02/06/2017 2:39 PM WILFRID/ramya TD: 02/06/2017 12:41 JOB #: [id number] [facility] A Service of [facility] RADIOLOGY TEXT RESULTS PATIENT: MINDY PETERSON LOCATION: [facility] #: [id number] : [birth year] UNIT #: [id number] AGE: [address]: Olimpia Leger SEX: M ORDER DR: MEDICAL IMAGING REPORT Page 1 of 1 COPY
== END | disposition home or self-care (01) ==
LOC: CRAD 09:19
DX: J44.9 Chronic obstructive pulmonary disease, unspecified (principal); J18.9 Pneumonia, unspecified organism; R53.83 Other fatigue; G47.33 Obstructive sleep apnea (adult) (pediatric); I25.10 Atherosclerotic heart disease of native coronary artery without angina pectoris
CPT/HCPCS: 71020

== ENCOUNTER → 2017-02-25 | Outpatient (CLI) | payer OTHER ==
--- NOTE | ~2017-02-25 | CT57 ---
[facility] A Service of [facility] RADIOLOGY TEXT RESULTS PATIENT: MINDY PETERSON LOCATION: [facility] : 45 UNIT #: [id number] AGE: [address]: Olimpia Leger SEX: M ORDER DR: [id number] [facility] [address] [place], [place] [address] [id number] O MR#: [id number] Acc #: [id number] NAME: MINDY PETERSON : 1945 SEX: M STUDY DATE/TIME: 02/25/2017 8:57 UNIT: [facility] ROOM: STUDY DESCRIPTION: CT Chest Wo Cont Attending Physician: Olimpia Leger A.P.R.N. Referring Physician: Olimpia Leger A.P.R.N. Ordering Physician: Olimpia Leger A.P.R.N. Primary Care Physician: Nickolas Arango M.D. MEDICAL IMAGING REPORT This report is preliminary unless electronic signature is present EXAM High-resolution chest CT without contrast INDICATIONS Abnormal chest x-ray showing fibrosis. Also history of COPD. TECHNIQUE CT of the chest was performed without contrast. Selected HRCT imaging was obtained. Supine and prone positioning performed. This CT exam was performed with one or more of the following radiation dose reduction techniques: automatic exposure control, adjustment of mA and/or kV according to patient size, and iterative reconstruction. COMPARISON 06/04/2016 FINDINGS Emphysema. Calcified granuloma in the medial right base. Tiny pleural-based micronodule in the left lower lobe on image 41. This is stable. There is no evidence for consolidation. There is no evidence for bronchiectasis, diffuse infiltrative lung disease or honeycombing. Extensive atherosclerotic calcification of the aorta. Enlargement of the main pulmonary artery which is nonspecific but can be seen of pulmonary arterial hypertension. There is no pleural effusion. Limited imaging of the upper abdomen is unremarkable. Bone windows are unremarkable. IMPRESSION 1. Emphysema. 2. No evidence for honeycombing, diffuse infiltrative lung disease or bronchiectasis. Dictated by... Jadiel Jo M.D. ST[facility]. [facility] A Service of [facility] & [facility] RADIOLOGY TEXT RESULTS PATIENT: MINDY PETERSON LOCATION: [facility] : 45 UNIT #: [id number] AGE: [address]: Olimpia Leger SEX: M ORDER DR: THIS IS AN ELECTRONICALLY VERIFIED REPORT Jadiel Jo M.D. at 02/27/2017 8:00 AM ARS/to TD: 02/25/2017 15:15 JOB #: [id number] MEDICAL IMAGING REPORT Page 1 of 1 COPY
== END | disposition home or self-care (01) ==
LOC: CCAT 08:26
DX: J44.9 Chronic obstructive pulmonary disease, unspecified (principal); J98.4 Other disorders of lung; R93.8 Abnormal findings on diagnostic imaging of other specified body structures
CPT/HCPCS: 71250

== ENCOUNTER → 2017-02-26 | Day surgery (SDC) | payer OTHER ==
--- NOTE | ~2017-02-26 | OR ---
Unit #: [id number] #: [id number] Patient: MINDY PETERSON [id number] [address] [place], [place] [address] [id number] O MR#: [id number] NAME: MINDY PETERSON. ROOM: Date of Procedure: 02/26/2017 Admission Date: 02/26/2017 Surgeon: Adolfo Barcenas M.D. : 1945 Attending Physician: Marcus Dumont III, M.D. Primary Care Physician: Nickolas Arango M.D. OPERATIVE REPORT JOB NOTE: VERIFY CC. CC: DR. HAAS; [facility]. PREOPERATIVE DIAGNOSIS Screening colonoscopy. POSTOPERATIVE DIAGNOSIS Screening colonoscopy. PROCEDURE PERFORMED 1. Colonoscopy to cecum. 2. Polypectomy with electrocautery snare at proximal colon, hepatic flexure x2, 70 cm, 40 cm, 45 cm, 35 cm. ANESTHESIA Monitored anesthesia care. FINDINGS The patient was found have a few scattered sigmoid diverticula and normal anastomosis in the area of the distal sigmoid colon, mild internal hemorrhoids. Polyps were excised with good hemostasis using electrocautery snare in the area of the proximal ascending colon, hepatic flexure x2 at 70 cm, 45 cm, 40 cm and 35 cm. Each was completely excised with electrocautery snare, retrieved and sent to pathology. SPECIMENS Sent to pathology. COMPLICATIONS None apparent. CONDITION The patient tolerated the procedure well. INDICATIONS FOR PROCEDURE The patient is a 71-year-old white male, who presents at this time for screening colonoscopy. DESCRIPTION OF PROCEDURE After obtaining informed consent, the patient was brought to the endoscopy suite and after adequate monitored anesthesia care, had the colonoscope placed through the anus and slowly advanced to the level of the cecum without difficulty with lumen always in view. The cecum was normal as was Unit #: [id number] #: [id number] Patient: MINDY PETERSON the ileocecal valve. Just beyond the cecum, in the proximal ascending colon, there was a polyp present. It was 4 to 5 mm in size. It was excised completely with the electrocautery snare with good hemostasis, retrieved with a mucus trap, and sent to pathology. The remaining portion of the ascending colon was normal. In the area of the hepatic flexure, there were 2 polyps in close approximation. Each was excised with electrocautery snare with good hemostasis, retrieved with a mucus trap, and sent to pathology. The transverse colon was normal as was the splenic flexure. In the area of 70 cm, a 4 to 5 mm polyp was excised with electrocautery snare with good hemostasis and in a similar fashion, polyps were excised at 45 cm, 40 cm, at 35 cm. There were a few scattered sigmoid diverticula present. The anastomosis from the patient's previous sigmoid resection for a colovesical fistula was widely patent and normal. The remaining portion of the rectosigmoid and rectum were all within normal limits. On retroflexing in the rectum to the anorectal junction, the patient was found to have some mild internal hemorrhoids. The scope was removed without difficulty. The patient tolerated the procedure well and went from the endoscopy suite to recovery area in stable condition. RECOMMENDATIONS High-fiber diet, lots of liquids, tucks or wipes p.r.n. Diverticular sheet given. Call Thursday for pathology. Repeat colonoscopy in 1 year's time. Dictated by... Nicholas Garcia/isidoro TD: 02/26/2017 08:17 JOB #: [id number] [facility] OPERATIVE REPORT Page 1 of 1 X Adolfo Barcenas MD X PROCEDURE OPERATIVE NOTE
== END | disposition home or self-care (01) ==
LOC: COPS 05:31
DX: Z12.11 Encounter for screening for malignant neoplasm of colon (principal); K63.5 Polyp of colon; D12.3 Benign neoplasm of transverse colon; D12.6 Benign neoplasm of colon, unspecified; E03.9 Hypothyroidism, unspecified; E11.9 Type 2 diabetes mellitus without complications; I48.91 Unspecified atrial fibrillation; J43.9 Emphysema, unspecified; F17.210 Nicotine dependence, cigarettes, uncomplicated; Z87.442 Personal history of urinary calculi; Z79.82 Long term (current) use of aspirin; Z79.899 Other long term (current) drug therapy; Z79.84 Long term (current) use of oral hypoglycemic drugs; Z79.01 Long term (current) use of anticoagulants; Z79.51 Long term (current) use of inhaled steroids; Z99.81 Dependence on supplemental oxygen; Z90.49 Acquired absence of other specified parts of digestive tract; Z98.41 Cataract extraction status, right eye; Z98.42 Cataract extraction status, left eye; Z98.890 Other specified postprocedural states
CPT/HCPCS: 82947; 88305